=== PATIENT | male | born 1940 | race Caucasian/White ===

== ENCOUNTER → 2017-03-30 | Outpatient (CLI) | payer MEDICARE, BC ==
--- NOTE | 2017-03-30 21:54 | MR ---
EXAMINATION TYPE: MR angio head wo con DATE OF EXAM: 03/30/2017 COMPARISON: NONE HISTORY: TIA CONTRAST: None TECHNIQUE: Multiplanar multiecho imaging on a 3.0 [place] magnet is performed through the [place] [facility]. 3-D [id number] imaging is performed. Source images are reviewed on the computer in the axi al plane. Reconstructed images rotating on the computer are reviewed. FINDINGS: The right internal carotid artery bifurcates into A1 and M1 segments. The left internal car otid artery has left M1 segments. The left A1 segment is not identified. The A2 segments are normal. Middle cerebral artery branches are normal. Anterior communicating artery is patent. The right posterior communicating artery is patent. The left posterior communicating artery is patent. Vertebrobasilar arteries within the [id number] are normal. Posterior cerebral vasculature is norm al. No suspicious aneurysm or aneurysmal dilatation is evident. No obstructions are identified. No significant flow-limiting stenosis is evident. IMPRESSIONS: 1. [place] is within normal limits. 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
--- NOTE | 2017-03-30 22:08 | MR ---
EXAMINATION TYPE: MR brain wo/w con DATE OF EXAM: 03/30/2017 COMPARISON: NONE HISTORY: TIA CONTRAST: Performed utilizing 8.7 mL intravenous Gadavist gadolinium contrast. TECHNIQUE: Multiplanar, multiecho imaging on a 3.0 Ivan[place] magnet is performed through the brain. Stud y is performed within 24 hours of arrival to the hospital. The craniovertebral junction is normal. The pituitary is normal. Diffusion-weighted imaging is performed. No abnormal hyperintensity is present to suggest an acute i ntracranial infarct or acute ischemic change. Mild periventricular white matter hyperintensity is present, likely on the basis of chronic white mat ter ischemic changes. No abnormal enhancement is evident. Ventricles and sulci are appropriate for the patient age. IMPRESSIONS: 1. Mild periventricular white matter ischemic type changes.
== END | disposition home or self-care (01) ==
LOC: RADMRIMAIN 15:35
PROVIDERS: ATTEND Psychiatry & Neurology Pain Medicine
DX: G31.9 Degenerative disease of nervous system, unspecified (principal); I67.82 Cerebral ischemia; Q28.3 Other malformations of cerebral vessels
CPT/HCPCS: 70544; 70553; A9581

== ENCOUNTER → 2021-05-07 | Outpatient (CLI) | payer MEDICARE, BC | END | disposition home or self-care (01) | LOC: LABWHC1 14:05 | PROVIDERS: ATTEND Internal Medicine | DX: Z11.59 Encounter for screening for other viral diseases (principal); Z20.822 Contact with and (suspected) exposure to COVID-19 | CPT/HCPCS: U0003; U0005 ==

== ENCOUNTER → 2023-02-11 | Outpatient (CLI) | payer MEDICARE, BC ==
--- NOTE | 2023-02-11 14:00 | US ---
EXAMINATION TYPE: US venous doppler duplex LE LT DATE OF EXAM: 02/11/2023 1:50 PM COMPARISON: NONE CLINICAL INDICATION: Male, 82 years old with history of R22.42 LOCALIZED SWELLING, MASS AND LUMP, LEF T LOW; edema left leg. SIDE PERFORMED: Left TECHNIQUE: The lower extremity deep venous system is examined utilizing real time linear array sonog aaron with graded compression, doppler sonography and color-flow sonography. VESSELS IMAGED: Common Femoral Vein Deep Femoral Vein Greater Saphenous Vein * Femoral Vein Popliteal Vein Small Saphenous Vein * Proximal Calf Veins (* superficial vessels) Left Leg: Negative for DVT IMPRESSION: Grayscale, color doppler, spectral doppler imaging performed of the deep veins of the lo wer extremities. There is normal flow, compressibility, vascular waveforms.
== END | disposition home or self-care (01) ==
LOC: RADUSWWP 13:31
PROVIDERS: ATTEND Internal Medicine
DX: R22.42 Localized swelling, mass and lump, left lower limb (principal)

== ENCOUNTER → 2023-06-19 | Outpatient (CLI) | payer MEDICARE, BC ==
[2023-06-19 16:12] LABS: Blood Urea Nitrogen 18.4 mg/dL (9.0-27.0); Carbon Dioxide 26.9 mmol/L (21.6-31.8); Chloride 103 mmol/L (96-109); Potassium 4.4 mmol/L (3.5-5.5); Sodium 141 mmol/L (135-145)
[2023-06-19 16:16] LABS: HGB 15.5 g/dL (13.0-17.0); MCH 30.9 pg (27.0-32.0); MCHC 34.4 g/dL (32.0-37.0); MCV 89.8 FL (80.0-97.0); Mean Platelet Volume 9.5 FL (9.5-12.2); NRBC Per 100 WBC 0 X 10*3/uL (0.00-0.01); Platelet Count 229 X 10*3/uL (140-440); RBC 5.01 X 10*6/uL (4.40-5.60); RDW 12.8 % (11.5-14.5); WBC 7.59 X 10*3/uL (4.50-10.00)
== END | disposition home or self-care (01) ==
LOC: LABPAT 10:40
PROVIDERS: ATTEND Internal Medicine Interventional Cardiology
DX: Z01.812 Encounter for preprocedural laboratory examination (principal); R06.02 Shortness of breath
CPT/HCPCS: 36415; 80051; 82565; 84520; 85027

== ENCOUNTER → 2023-06-29 | Day surgery (SDC) | payer MEDICARE, BC ==
[~2023-06-29] MED LIST: ALPRAZolam 0.25 MG TAB PO PRN; ALPRAZolam 0.5 MG TAB PO PRN; ASPIRIN 325 MG TAB PO STA; HEPARIN SODIUM 1,000 UN/ML (10ML VL) ONE; HEPARIN SODIUM,PORCINE (1 ML) 2,500 UNIT in SODIUM CHLORIDE 0.9% 250 ML IRRIGATION PRN; HEPARIN SODIUM,PORCINE 10,000 UNIT in SODIUM CHLORIDE 0.9% 1,000 ML IRRIGATION PRN; LIDOCAINE 1% INJ 10MG/ML (20 ML MDV) SQ ONE; MIDAZOLAM 2 MG/2 ML VIAL IVP ONE; NITROGLYCERIN SL TABS 0.4 MG TAB SUBLINGUAL PRN; RX INFO: IV CONTRAST WAS GIVEN 1 EACH MISC MISCELLANE PRN; SODIUM CHLORIDE 0.9% 1,000 ML IV SCH; SODIUM CHLORIDE 0.9% 1,000 ML in EMPTY BAG 1 BAG IV SCH; VERAPAMIL 2.5 MG/ML 2 ML AMP ONE; VERAPAMIL SYRINGE (5 MG/10 ML) INTRAARTER ONE; fentaNYL (PF) 50 MCG/1 ML VIAL IVP ONE; fentaNYL (PF) 50 MCG/ML 2 ML AMP ONE
[2023-06-29 07:26] VITALS: RESP 16; TEMP 98
--- NOTE | 2023-06-29 09:03 | P.PCN ---
Date of Procedure: 06/29/23 Operative Findings: CARDIAC CATHETERIZATION PERFORMING PHYSICIAN: Lai Cintron MD, RPVI PROCEDURE PERFORMED: 1. Selective right and left coronary angiogram 2. Left heart catheterization 3. Ultrasound-guided access of the right radial artery INDICATION: Symptomatic patient was abnormal myocardial perfusion imaging stress test showing an inferior ischemia COMPLICATION: None APPROACH: Right radial artery LEVEL OF SEDATION: Moderate with a sedation length of 17 minutes PROCEDURE DESCRIPTION: After obtaining an informed consent, the patient was brought to cardiac recyclable materials sorter. Local anesthesia was performed using lidocaine subcutaneously. The right radial artery was cannulated using Seldinger technique, the guidewire passed easily, following that we advanced a 5-Filipino sheath dilator assembly, the wire and dilator were removed and sheath was flushed. Following that, 2 mg of verapamil along with 5000 unit heparin were given. Selective right and left coronary angiogram using a 6-Filipino JR4 and JL 3.5 catheters. Following that we did left heart catheterization using 6-Filipino pigtail catheter. The procedure was completed there was no complication. SELECTIVE CORONARY ANGIOGRAM: The right coronary artery: Moderate caliber vessel and a dominant vessel was mild disease by the ostium Left main: Long but angiographically normal. Bifurcates into an ulcer he asked and LAD The left circumflex: Large caliber vessel nondominant vessel appears to be angiographically normal and gives rises into the first and second obtuse marginal branches both appeared to be angiographically normal The left anterior descending artery: Large caliber vessel. Its angiographically normal. Gives rise into a large diagonal branch which seems to be angiographically normal HEMODYNAMICS: The LVEDP was 10 mmHg was no significant gradient across aortic valve CONCLUSION: 1. Mild CAD 2. Normal left-sided filling pressure POSTPROCEDURE MANAGEMENT: Medical treatment
[2023-06-29 20:02] VITALS: BP 157/65; PULSE 60
== END ==
LOC: CATHCVL 07:04
PROVIDERS: ATTEND Internal Medicine Interventional Cardiology
DX: I25.10 Atherosclerotic heart disease of native coronary artery without angina pectoris (principal); I10 Essential (primary) hypertension; E78.5 Hyperlipidemia, unspecified; F17.210 Nicotine dependence, cigarettes, uncomplicated; Z82.49 Family history of ischemic heart disease and other diseases of the circulatory system; Z86.73 Personal history of transient ischemic attack (TIA), and cerebral infarction without residual deficits; Z79.899 Other long term (current) drug therapy
CPT/HCPCS: 93458; C1769; C1894; J2250; J2001; J1644; J3010

== ENCOUNTER → 2023-07-13 | Outpatient (CLI) | payer MEDICARE, BC ==
--- NOTE | 2023-07-13 13:30 | XR ---
EXAMINATION TYPE: XR ankle complete LT DATE OF EXAM: 07/13/2023 COMPARISON: NONE HISTORY: Pain FINDINGS: Three views of the ankle demonstrate the ankle mortise to be intact and symmetric. The joint spaces are preserved. The osseous structures are intact. There is diffuse osteopenia. Large calcaneal spur s. IMPRESSION: 1. A large calcaneal spurs.
--- NOTE | 2023-07-13 13:39 | XR ---
EXAMINATION TYPE: XR foot complete LT DATE OF EXAM: 07/13/2023 COMPARISON: NONE HISTORY: Pain TECHNIQUE: Three views are submitted. FINDINGS: The osseous structures are intact. There is no acute fracture or dislocation. Joint spaces are p reserved. Diffuse osteopenia with moderate hypertrophic arthropathy first MTP. 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 No erosive changes. Large plantar calcaneal spur. IMPRESSION: 1. Moderate first MTP joint arthropathy. 2. Large plantar calcaneal spur.
== END | disposition home or self-care (01) ==
LOC: RADXRYALE 13:07
PROVIDERS: ATTEND Internal Medicine
DX: M77.32 Calcaneal spur, left foot (principal)